=== PATIENT | male | born 1940 | race Caucasian/White ===

== ENCOUNTER 2019-06-14 22:59 | Emergency (ER) | payer MEDICARE ==
--- NOTE | 2019-06-14 23:58 | EDM.PDOC ---
ED HPI GENERAL MEDICAL PROBLEM - General Chief Complaint: Respiratory Problem Stated Complaint: COUGH,CHEST DISCOMFORT Time Seen by Provider: 06/14/19 23:58 Source of Information: Reports: Patient History Limitations: Reports: No Limitations - History of Present Illness INITIAL COMMENTS - FREE TEXT/NARRATIVE: pt has been dealing with a pneumonia for about 1 month. He is off of antibiotics at this time. He developed acute left pleuritic chest pain after he went to bed this pm. He is quite uncomfortable when he takes a deep breath. Onset: Today, Sudden Duration: Hour(s): Location: Reports: Chest Associated Symptoms: Reports: Chest Pain, Cough - Related Data Allergies Allergy/AdvReac Type Severity Reaction Status Date / Time meperidine [From Demerol] Allergy Nausea and Verified 06/14/19 23:16 Vomiting Home Meds: Home Meds NK [No Known Home Meds] 06/14/19 [History] Past Medical History HEENT History: Reports: Impaired Vision Cardiovascular History: Reports: Afib Gastrointestinal History: Reports: None Genitourinary History: Reports: Other (See Below) Other Genitourinary History: self cath Musculoskeletal History: Reports: Arthritis Oncologic (Cancer) History: Reports: Basal Cell Carcinoma - Past Surgical History Head Surgeries/Procedures: Reports: None HEENT Surgical History: Reports: Adenoidectomy, Tonsillectomy Cardiovascular Surgical History: Reports: None GI Surgical History: Reports: Hernia, Inguinal Musculoskeletal Surgical History: Reports: Knee Replacement Dermatological Surgical History: Reports: None Social & Family History - Tobacco Use Smoking Status *Q: Never Smoker Second Hand Smoke Exposure: No - Caffeine Use Caffeine Use: Reports: Coffee - Alcohol Use Days Per Week of Alcohol Use: 7 Number of Drinks Per Day: 1 Total Drinks Per Week: 7 - Recreational Drug Use Recreational Drug Use: No ED ROS GENERAL - Review of Systems Review Of Systems: See Below Constitutional: Reports: No Symptoms HEENT: Reports: No Symptoms Respiratory: Reports: Pleuritic Chest Pain, Other ( came on suddenly tonight. ) Cardiovascular: Reports: Chest Pain Endocrine: Reports: No Symptoms GI/Abdominal: Reports: No Symptoms : Reports: No Symptoms Musculoskeletal: Reports: No Symptoms Skin: Reports: No Symptoms Neurological: Reports: No Symptoms Psychiatric: Reports: Anxiety ED EXAM, GENERAL - Physical Exam Exam: See Below Free Text/Narrative:: pt arrived with pain in left chest when he took a deep breath. He states this started this pm. He did not get sweaty. If he is not deep breathing he is not uncomfortable. Exam Limited By: No Limitations General Appearance: Alert, Anxious, Moderate Distress, Other ( this is only with deep breathing. ) Ears: Normal TMs Nose: Normal Inspection Throat/Mouth: Normal Inspection Head: Atraumatic Neck: Normal Inspection Respiratory/Chest: Other (pt is uncomfoprtable with real deep breathing. ) Cardiovascular: Regular Rate, Rhythm, Other (pt had a partial bundle branch. ) GI/Abdominal: Soft, Non-Tender (Male) Exam: Deferred Rectal (Males) Exam: Deferred Back Exam: Normal Inspection Extremities: Normal Inspection Neurological: Alert, Oriented, Normal Cognition Psychiatric: Normal Affect Course - Vital Signs Last Recorded V/S: Last Vital Signs Temp 35.6 C 06/14/19 23:21 Pulse 63 06/14/19 23:41 Resp 14 06/14/19 23:41 BP 123/71 06/14/19 23:41 Pulse Ox 94 L 06/14/19 23:41 - Orders/Labs/Meds Orders: Active Orders 24 hr Category Date Time Status EKG Documentation Completion [RC] ASDIRECTED Care 06/14/19 23:56 Active EKG 12 Lead [EK] Routine Ther 06/14/19 23:56 Ordered Labs: Laboratory Tests 06/14/19 06/14/19 06/14/19 Range/Units 00:10 00:10 00:10 WBC 5.6 (4.5-11.0) K/uL RBC 4.56 (4.30-5.90) M/uL Hgb 13.9 (12.0-15.0) g/dL Hct 41.2 (40.0-54.0) % MCV 90 (80-98) fL MCH 31 (27-31) pg MCHC 34 (32-36) % Plt Count 223 (150-400) K/uL Neut % (Auto) 42 (36-66) % Lymph % (Auto) 41 (24-44) % [place] % (Auto) 9 H (2-6) % Eos % (Auto) 8 H (2-4) % Baso % (Auto) 1 (0-1) % D-Dimer, Quantitative < 100 (0.0-400.0) ng/mL Sodium 139 L (140-148) mmol/L Potassium 3.9 (3.6-5.2) mmol/L Chloride 104 (100-108) mmol/L Carbon Dioxide 29 (21-32) mmol/L Anion Gap 9.9 (5.0-14.0) mmol/L BUN 16 (7-18) mg/dL Creatinine 1.0 (0.8-1.3) mg/dL Est Cr Clr Drug Dosing 60.88 mL/min Estimated GFR (MDRD) > 60 (>60) Glucose 98 (74-106) mg/dL Calcium 8.5 (8.5-10.1) mg/dL Total Bilirubin 0.4 (0.2-1.0) mg/dL AST 20 (15-37) U/L ALT 19 (12-78) U/L Alkaline Phosphatase 58 (46-116) U/L Troponin I (0.000-0.056) ng/mL C-Reactive Protein (0.0-0.3) mg/dL Total Protein 6.6 (6.4-8.2) g/dL Albumin 3.5 (3.4-5.0) g/dL Globulin 3.1 (2.3-3.5) g/dL Albumin/Globulin Ratio 1.1 L (1.2-2.2) 06/14/19 06/15/19 Range/Units 00:10 00:10 WBC (4.5-11.0) K/uL RBC (4.30-5.90) M/uL Hgb (12.0-15.0) g/dL Hct (40.0-54.0) % MCV (80-98) fL MCH (27-31) pg MCHC (32-36) % Plt Count (150-400) K/uL Neut % (Auto) (36-66) % Lymph % (Auto) (24-44) % [place] % (Auto) (2-6) % Eos % (Auto) (2-4) % Baso % (Auto) (0-1) % D-Dimer, Quantitative (0.0-400.0) ng/mL Sodium (140-148) mmol/L Potassium (3.6-5.2) mmol/L Chloride (100-108) mmol/L Carbon Dioxide (21-32) mmol/L Anion Gap (5.0-14.0) mmol/L BUN (7-18) mg/dL Creatinine (0.8-1.3) mg/dL Est Cr Clr Drug Dosing mL/min Estimated GFR (MDRD) (>60) Glucose (74-106) mg/dL Calcium (8.5-10.1) mg/dL Total Bilirubin (0.2-1.0) mg/dL AST (15-37) U/L ALT (12-78) U/L Alkaline Phosphatase (46-116) U/L Troponin I < 0.017 (0.000-0.056) ng/mL C-Reactive Protein 0.07 (0.0-0.3) mg/dL Total Protein (6.4-8.2) g/dL Albumin (3.4-5.0) g/dL Globulin (2.3-3.5) g/dL Albumin/Globulin Ratio (1.2-2.2) Meds: Medications Discontinued Medications Generic Name Dose Route Start Last Admin Trade Name Balbir PRN Reason Stop Dose Admin Ketorolac Tromethamine 60 mg 06/15/19 00:32 06/15/19 00:44 Toradol IM 06/15/19 00:33 Not Given ONETIME ONE - Re-Assessments/Exams Free Text/Narrative Re-Assessment/Exam: 06/15/19 00:52 pt had a neg chest xray. his wbc was normal. His trop was normal. He had a neg ddimer. His crp was low. Departure - Departure Time of Disposition: 00:46 Disposition: Home, Self-Care 01 Condition: Fair Clinical Impression: Pleuritic chest pain - Discharge Information Instructions: Pleurodynia Referrals: PCP,None [Primary Care Provider] - Forms: ED Department Discharge Care Plan Goals: tylenol and motrin 600mg as needed for pain, encourage deep breathing, rtc if increased problem - My Orders Last 24 Hours: My Active Orders 06/14/19 23:56 EKG Documentation Completion [RC] ASDIRECTED EKG 12 Lead [EK] Routine - Assessment/Plan Last 24 Hours: My Active Orders 06/14/19 23:56 EKG Documentation Completion [RC] ASDIRECTED EKG 12 Lead [EK] Routine
--- NOTE | 2019-06-15 00:28 | CRLCR ---
Indication: Pleuritic chest pain Technique: Chest 2 views Comparison: None Findings: Cardiovascular and mediastinum: Normal heart size with aortic tortuosity and atherosclerotic calcification. Lungs and pleural spaces: Lungs are clear. No sign of infiltrate or mass. No sign of pleural effusion. No pneumothorax. Bones and soft tissues: Old healed distal right clavicular fracture. Impression: No acute pulmonary consolidation. Dictated by Kamaljit Doe MD @ Jun 15 2019 12:25AM Signed by Dr. Kamaljit Doe @ Jun 15 2019 12:27AM
[2019-06-15] MEDS ORDERED: Ketorolac 60 MG/2 ML SDV IM ONE (00:32)
== END 2019-06-15 00:51 | disposition home or self-care (01) ==
LOC: JP.ED 22:59
DX: R07.81 Pleurodynia (principal); I48.91 Unspecified atrial fibrillation; Z88.8 Allergy status to other drugs, medicaments and biological substances
CPT/HCPCS: 36415; 71046; 80053; 84484; 85025; 85379; 86140; 93005; 99284-25

== ENCOUNTER 2022-03-29 06:39 | Day surgery (SDC) | payer MEDICARE ==
[2022-03-29] MEDS ORDERED: fentaNYL 100 MCG/2 ML SDV ONE (06:58)
[2022-03-29] MEDS ORDERED: Propofol 200 MG/20 ML SDV ONE ×4 (06:58→09:32)
[2022-03-29] MEDS ORDERED: Dextrose 5%-Lactated Ringers 1,000 ML IV SCH (08:30)
== END 2022-03-29 10:40 | disposition home or self-care (01) ==
LOC: JP.SDS 06:39
PROVIDERS: ATTEND Family Medicine
DX: C18.7 Malignant neoplasm of sigmoid colon (principal); D12.2 Benign neoplasm of ascending colon; D12.3 Benign neoplasm of transverse colon; K64.8 Other hemorrhoids; Z88.8 Allergy status to other drugs, medicaments and biological substances
CPT/HCPCS: 45380; J2704; J3010; 88305; 88341; 88342

== ENCOUNTER 2023-05-20 08:21 | Day surgery (SDC) | payer MEDICARE ==
[2023-05-20] MEDS ORDERED: fentaNYL 50 MCG/ML SDV ONE (08:42)
[2023-05-20] MEDS ORDERED: Propofol 200 MG/20 ML SDV ONE (08:42)
[2023-05-20] MEDS ORDERED: Dextrose 5%-Lactated Ringers 1,000 ML IV SCH (08:45)
== END 2023-05-20 12:25 | disposition home or self-care (01) ==
LOC: JP.SDS 08:21
PROVIDERS: ATTEND Surgery
DX: Z08 Encounter for follow-up examination after completed treatment for malignant neoplasm (principal); K64.9 Unspecified hemorrhoids; Z85.038 Personal history of other malignant neoplasm of large intestine; Z90.49 Acquired absence of other specified parts of digestive tract; Z88.5 Allergy status to narcotic agent; Z88.8 Allergy status to other drugs, medicaments and biological substances; Z98.0 Intestinal bypass and anastomosis status
CPT/HCPCS: 45378; J2704; J7121; J3010